=== PATIENT | male | born 1995 | race Caucasian/White ===

== ENCOUNTER 2018-01-17 12:48 | Emergency (ER) | payer MEDICAID, OTHER ==
[2018-01-17] MEDS ORDERED: Sodium Chloride 0.9% 1,000 ML IV ONE ×2 (12:55→14:11)
[2018-01-17] MEDS ORDERED: Pantoprazole 40 MG Vial IVPUSH ONE (12:55)
[2018-01-17] MEDS ORDERED: Ondansetron 4 MG/2 ML SDV IVPUSH ONE (12:55)
[2018-01-17] MEDS ORDERED: Thiamine 100 MG in Sodium Chloride 0.9% 100 ML IV ONE (12:55)
[2018-01-17] MEDS ORDERED: Thiamine 200 MG/2 ML MDV IV ONE (13:49)
--- NOTE | 2018-01-17 15:13 | EDM.PDOC ---
ED HPI GENERAL MEDICAL PROBLEM - General Chief Complaint: Gastrointestinal Problem Stated Complaint: NAUSEA, ETOH Time Seen by Provider: 01/17/18 12:48 Source of Information: Reports: Patient, Family History Limitations: Reports: Altered Mental Status - History of Present Illness INITIAL COMMENTS - FREE TEXT/NARRATIVE: 22 y.o.w.m with h/o chronic ETOH abuse, was drinking last night heavily and has now a "hang over" with N/V and "feeling drunk", unable to go to school/work. Pt came with a friend. No other acute Medical issues. BP 137/87 Pulse 78 Temp 36.7 RR 18 Pulse ox 98% on RA Onset Date: 01/17/18 Onset Time: 05:00 Duration: Hour(s): Location: Reports: Abdomen Quality: Reports: Ache, Burning Severity: Mild Improves with: Reports: Rest Worsens with: Reports: Movement Context: Reports: Other (ETOH abuse) Associated Symptoms: Reports: Nausea/Vomiting, Weakness Headache Pain Score (Numeric/FACES): 7 - Related Data Allergies Allergy/AdvReac Type Severity Reaction Status Date / Time No Known Allergies Allergy Verified 01/17/18 13:39 Home Meds: Home Meds FLUoxetine [PROzac] 40 mg PO DAILY 01/17/18 [History] ED ROS GENERAL - Review of Systems Review Of Systems: Unable To Obtain (intoxicated) ED EXAM, GI/ABD - Physical Exam Exam: See Below Exam Limited By: Intoxication General Appearance: Alert, WD/WN, Mild Distress Eyes: Bilateral: Normal Appearance Ears: Normal External Exam, Normal Canal Nose: Normal Inspection, Normal Mucosa Throat/Mouth: Normal Inspection, Normal Lips, Normal Teeth Head: Atraumatic, Normocephalic Neck: Normal Inspection, Supple, Non-Tender Respiratory/Chest: No Respiratory Distress, Lungs Clear, Normal Breath Sounds, No Accessory Muscle Use, Chest Non-Tender Cardiovascular: Normal Peripheral Pulses, Regular Rate, Rhythm, No Edema, No Gallop GI/Abdominal Exam: Normal Bowel Sounds, Soft, No Organomegaly, No Abnormal Bruit , Tender (epigastric) (Male) Exam: Deferred Rectal (Males) Exam: Deferred Back Exam: Normal Inspection, Full Range of Motion Extremities: Normal Inspection, Normal Range of Motion, Non-Tender, No Pedal Edema Neurological: Alert, Oriented, CN II-XII Intact, Slow to Respond Psychiatric: Other (intoxicated) Skin Exam: Warm, Dry, Intact, Normal Color, No Rash Lymphatic: No Adenopathy Course - Vital Signs Text/Narrative:: 22 y.o.w.m with h/o chronic ETOH abuse, was drinking last night heavily and has now a "hang over" with N/V and "feeling drunk", unable to go to school/work. Pt came with a friend. No other acute Medical issues. BP 137/87 Pulse 78 Temp 36.7 RR 18 Pulse ox 98% on RA PE: WNWD intoxicated maleLabs ETOH 200 Impression: ETOH intoxication, ETOH gastritis Tx: Thiamin, NS, Zofran, Protronix Reexam: Improved Plan: D/C with instructions Last Recorded V/S: Last Vital Signs Temp 36.6 C 01/17/18 15:14 Pulse 93 01/17/18 14:03 Resp 18 01/17/18 15:14 BP 119/76 01/17/18 15:14 Pulse Ox 100 01/17/18 15:14 - Orders/Labs/Meds Labs: Laboratory Tests 01/17/18 01/17/18 01/17/18 Range/Units 13:07 13:07 13:07 WBC 7.6 (4.5-12.0) X10-3/uL RBC 5.32 (4.30-5.75) x10(6)uL Hgb 15.9 H (11.5-15.5) g/dL Hct 47.3 (30.0-51.3) % MCV 89.0 (80-96) fL MCH 29.8 (27.7-33.6) pg MCHC 33.5 (32.2-35.4) g/dL RDW 12.8 (11.5-15.5) % Plt Count 282 (125-369) X10(3)uL MPV 8.4 (7.4-10.4) fL Neut % (Auto) 70.1 (46-82) % Lymph % (Auto) 23.9 (13-37) % [place] % (Auto) 4.3 (4-12) % Eos % (Auto) 1 (1.0-5.0) % Baso % (Auto) 1 (0-2) % Neut # (Auto) 5.4 (1.6-8.3) # Lymph # (Auto) 1.8 (0.6-5.0) # [place] # (Auto) 0.3 (0.0-1.3) # Eos # (Auto) 0.1 (0.0-0.8) # Baso # (Auto) 0.0 (0.0-0.2) # Sodium 143 (135-145) mmol/L Potassium 4.1 (3.5-5.3) mmol/L Chloride 105 (100-110) mmol/L Carbon Dioxide 24 (21-32) mmol/L BUN 11 (7-18) mg/dL Creatinine 0.8 (0.70-1.30) mg/dL Est Cr Clr Drug Dosing TNP Estimated GFR (MDRD) > 60 (>60) BUN/Creatinine Ratio 13.8 (9-20) Glucose 90 (80-116) mg/dL Calcium 9.4 (8.6-10.2) mg/dL Ethyl Alcohol 0.21 H* (<0.03) % Meds: Medications Discontinued Medications Generic Name Dose Route Start Last Admin Trade Name Freq PRN Reason Stop Dose Admin Sodium Chloride 1,000 mls @ 999 mls/hr 01/17/18 12:55 01/17/18 13:17 Normal Saline IV 01/17/18 13:55 999 mls/hr .BOLUS ONE Administration Thiamine HCl 100 mg/ Sodium 101 mls @ 202 mls/hr 01/17/18 12:55 01/17/18 13: 46 Chloride IV 01/17/18 12:56 Not Given ONETIME ONE Sodium Chloride 1,000 mls @ 999 mls/hr 01/17/18 14:11 01/17/18 14:28 Normal Saline IV 01/17/18 15:11 999 mls/hr .BOLUS ONE Administration Ondansetron HCl 8 mg 01/17/18 12:55 01/17/18 13:51 Zofran IVPUSH 01/17/18 12:56 8 mg ONETIME ONE Administration Pantoprazole Sodium 40 mg 01/17/18 12:55 01/17/18 13:54 Protonix Iv IVPUSH 01/17/18 12:56 40 mg ONETIME ONE Administration Thiamine HCl 100 mg 01/18/18 13:46 Vitamin B-1 IV 02/23/18 13:47 ONETIME ONE Thiamine HCl 100 mg 01/17/18 13:49 01/17/18 13:50 Vitamin B-1 IV 01/17/18 13:50 100 mg ONETIME ONE Administration Departure - Departure Time of Disposition: 15:10 Disposition: Home, Self-Care 01 Condition: Good Clinical Impression: ETOH abuse - Discharge Information Instructions: Alcohol Intoxication, [id number], Dehydration, Adult, Easy-to- Read Referrals: PCP,None [Primary Care Provider] - Forms: ED Department Discharge, ED Return to Work/School Form Additional Instructions: Please increase water intake, please take vitamins daily, please no alcohol! Please follow up at the clinic, come back if your symptoms get worse acutely.
[2018-01-18] MEDS ORDERED: Thiamine 200 MG/2 ML MDV IV ONE (13:46)
== END 2018-01-17 15:28 | disposition home or self-care (01) ==
LOC: FB.ED 12:48
DX: K29.20 Alcoholic gastritis without bleeding (principal); F10.129 Alcohol abuse with intoxication, unspecified; Y90.0 Blood alcohol level of less than 20 mg/100 ml
CPT/HCPCS: 36415; 80048; 85025; 96361; 96374; 96375; 99284; C9113; G0480; J2405; J3411; J7040